=== PATIENT | male | born 1950 | race Caucasian/White ===

== ENCOUNTER 2016-12-27 16:25 | Emergency (ER) | payer BC, OTHER ==
[~2016-12-27] VITALS: Wt 81.0 kg
[2016-12-27] MEDS ORDERED: ONDANSETRON (ODT) 4 MG TAB ODT STA (18:25)
[2016-12-27] MEDS ORDERED: HYDROCODONE/APAP (5/325) TAB PO ONE (18:30)
--- NOTE | 2016-12-27 19:38 | RADRPT ---
PROCEDURE: CT Brain without contrast. CLINICAL INDICATION: Falls; Neurologic deficit TECHNIQUE: A CT of the brain was performed on multidetector high-resolution CT scanner utilizing a xial sections from the skull base through the vertex without contrast. One or more of the following dose reduction techniques were used: Automated exposure control, Adjustment of the mA and/or kV acc ording to patient size, and/or use of iterative reconstruction technique. DOSE: CTDI = 44 mGy and the DLP = 630 mGy-cm. COMPARISON: None available FINDINGS: No acute intracranial hemorrhage, significant mass effect or midline shift. Mild hypoattenuation of the cerebral white matter is compatible with chronic microvascular ischemic changes. Vascular calcif ications. Prominence of the cortical sulci and ventricles are related to mild cerebral volume loss. No significant opacification of the visualized paranasal sinuses or mastoids. IMPRESSION: No acute intracranial hemorrhage or mass effect. Mild chronic microvascular disease and intracranial atherosclerosis. RPTAT: AA .Bruno Jacobson MD, MD Date Time Electronically viewed and signed by .Bruno Jacobson MD, on 12/27/2016 19:38 .T/
--- NOTE | 2016-12-27 19:40 | RADRPT ---
PROCEDURE: CT Cervical Spine without contrast. CLINICAL INDICATION: Trauma, neck pain. TECHNIQUE: A CT of the cervical spine was performed on a multidetector CT scanner utilizing high-r esolution axial imaging from the skull base through the cervical thoracic junction. Sagittal and co ruma reconstructions were performed. CTDI: 22 mGy. DLP: 500 mGycm. One or more of the following dose reduction techniques were used: Automated exposure control, Adjustment of the mA and/or kV acc ording to patient size, and/or use of iterative reconstruction technique. COMPARISON: None available. FINDINGS: There is straightening of the normal lordosis of the cervical spine. No significant bony spinal can al or bony foraminal narrowing. No acute cervical vertebral fracture or subluxation. The prevertebra l soft tissues are unremarkable. The partially visualized lung apices are unremarkable. IMPRESSION: Straightening of the cervical lordosis. No acute cervical vertebral fracture or subluxation. RPTAT: AA .Bruno Jacobson MD, MD Date Time Electronically viewed and signed by .Bruno Jacobson MD, on 12/27/2016 19:39 .T/
[2016-12-27] MEDS ORDERED: ACET325T33 PO (19:43)
--- NOTE | 2016-12-27 19:43 | RADRPT ---
PROCEDURE: CT thoracic spine without contrast CLINICAL INDICATION: Back pain. TECHNIQUE: CT scan of the thoracic spine was performed [facility] No IV contrast was administered. One or more of the following dose reduction techniques were us ed: Automated exposure control, Adjustment of the mA and/or kV according to patient size, and/or use of iterative reconstruction technique. DOSE: CTDI = 28mGy and the DLP = 1079mGy-cm. COMPARISON: None available FINDINGS: Minimal chronic-appearing superior endplate T4 compression deformity. No definite acute thoracic vertebral fracture or subluxation is identified. Mild scattered degenerative changes at the bilateral mid-thoracic costovertebral junctions. No bony spinal canal or bony foraminal narrowing. Paraspinous soft tissues are grossly unremarkable. IMPRESSION: Minimal chronic-appearing superior endplate T4 compression deformity. No definite acute thoracic vertebral fracture or subluxation is identified. RPTAT: AA .Bruno Jacobson MD, MD Date Time Electronically viewed and signed by .Bruno Jacobson MD, on 12/27/2016 19:42 .T/
--- NOTE | 2016-12-27 19:45 | RADRPT ---
PROCEDURE: CT L-Spine. CLINICAL INDICATION: Back pain TECHNIQUE: A CT of the lumbar spine was performed on a multidetector CT scanner utilizing axial im ages from the thoracic lumbar junction through the lumbar sacral junction. Sagittal and coronal ref ormatted images were made. The CTDIvol is 35mGy and the DLP is 996mGycm. One or more of the followin g dose reduction techniques were used: Automated exposure control, Adjustment of the mA and/or kV ac cording to patient size, and/or use of iterative reconstruction technique. COMPARISON: None available. FINDINGS: No evidence of an acute lumbar vertebral compression fracture. L1-2: The disk space height is maintained. No bony spinal canal or bony foraminal narrowing. L2-3: The disk space height is maintained. No bony spinal canal or bony foraminal narrowing. L3-4: The disk space height is maintained.No bony spinal canal or bony foraminal narrowing. L4-5: The disk space height is maintained.No bony spinal canal or bony foraminal narrowing. L5-1: Grade 1 retrolisthesis with mild disc height loss and vacuum disc phenomenon. Foraminal disc o steophytes with mild to moderate left and mild right foraminal narrowing. Facet arthropathy. Sacroiliac joint degenerative changes. Aortoiliac atherosclerosis. IMPRESSION: No acute compression fracture. Grade 1 retrolisthesis in mild to moderate discogenic disease L5-S1. RPTAT: AA .Bruno Jacobson MD, MD Date Time Electronically viewed and signed by .Bruno Jacobson MD, MD on 12/27/2016 19:45 .T/
--- NOTE | 2016-12-27 19:52 | RADRPT ---
PROCEDURE: CT Abdomen and Pelvis without contrast. CLINICAL INDICATION: Abdominal pain TECHNIQUE: CT scan of the abdomen and pelvis was performed on a multidetector high-resolution CT s canner without intravenous contrast. Coronal and sagittal reformatted images were obtained from the axial source images. Images were reviewed on a high-resolution PACS workstation. The total exam CTD I equals 12mGy and the total exam DLP equals 736mGy-cm. One or more of the following dose reduction techniques were used: Automated exposure control, Adjustment of the mA and/or kV according to patien t size, and/or use of iterative reconstruction technique. COMPARISON: None. FINDINGS: Evaluation of the solid organs is limited given the lack of intravenous contrast administration. Coronary arterial and aortic atherosclerosis. Nodular surface contour to the liver. Prominent gastroesophageal varices. Spleen is enlarged. Trace perihepatic ascites. No pancreatic ductal dilatation. Adrenals are grossly unremarkable. Cholelithiasis without focal pericholecystic inflammatory changes. No hydronephrosis. No renal or ureteral stone. No bowel obstruction. Normal-caliber appendix. No significant retroperitoneal lymphadenopathy, ascites or evidence of pneumoperitoneum. Aortoiliac atherosclerosis. No retroperitoneal hemorrhage identified. Nondisplaced posterior left tenth rib fracture. IMPRESSION: Nondisplaced posterior left tenth rib fracture. No definite acute intra-abdominal process on this noncontrast exam. Cirrhosis with stigmata of portal hypertension including large gastroesophageal varices, trace perih epatic ascites and splenomegaly. Cholelithiasis. RPTAT: AA .Bruno Jacobson MD, Date Time Electronically viewed and signed by .Bruno Jacobson MD, MD on 12/27/2016 19:52 .T/
[2016-12-27] MEDS ORDERED: HYDR-906 PO (19:58)
--- NOTE | 2016-12-27 20:57 | ERD ---
ER Documentation Chief Complaint Chief Complaint MECHANICAL FALL DURING WALK TODAY HPI Patient is a 66-year-old male brought in by his family with concerns for back pain after fall yesterday. The patient was walking when he accidentally tripped over something falling backwards onto the left side of his back. Pain is constant pain, and was sudden in onset. No other symptoms or injuries reported at this time. No loss of consciousness reported. Patient is not on blood thinners. ROS All systems reviewed and are negative except as per history of present illness. Medications Home Meds Active Scripts Hydrocodone/Acetaminophen ([place] 5-325 Tablet) 1 Each Tablet, 1 TAB PO Q6H Y for PAIN, #12 TAB Prov:ISSA CM PA-C 12/27/16 Acetaminophen* (Tylenol*) 325 Mg Tablet, 2 TAB PO Q6 Y for PAIN AND OR ELEVATED TEMP, #20 TAB Prov:ISSA CM PA-C 12/27/16 Allergies Allergies: Coded Allergies: No Known Drug Allergies (Verified Allergy, Unknown, 12/27/16) PMhx/Soc Medical and Surgical Hx: pt denies Medical Hx, pt denies Surgical Hx Physical Exam Vitals Vital Signs Date Time Temp Pulse Resp B/P Pulse Ox O2 Delivery O2 Flow Rate FiO2 12/27/16 16:29 98.9 83 18 150/74 99 Physical Exam Const: Nontoxic, well-appearing male in no acute distress. Head: Atraumatic Eyes: Normal Conjunctiva ENT: Normal External Ears, Nose and Mouth. Neck: Full range of motion..~ No meningismus. Resp: Clear to auscultation bilaterally Cardio: Regular rate and rhythm, no murmurs Abd: Soft, non tender, non distended. Normal bowel sounds Back: Significant ecchymosis with associated tenderness palpation noted to the left mid back. Ext: No cyanosis, or edema Neur: Awake and alert Psych: Normal Mood and Affect Results 24 hrs Current Medications Medications (Trade) Dose Ordered Sig/Jesus Route PRN Reason Start Time Stop Time Status Last Admin Dose Admin Acetaminophen/ Hydrocodone Bitart ([place] (5/325)) 1 tab ONCE ONCE PO 12/27/16 18:30 12/27/16 18:31 DC 12/27/16 18:37 Ondansetron HCl (Zofran Odt) 4 mg ONCE STAT ODT 12/27/16 18:25 12/27/16 18:29 DC 12/27/16 18:37 Procedures/MDM 58-year-old male presents for fall today. There is no loss of consciousness. The only significant finding was a left rib fracture on imaging studies. No evidence of intracranial hemorrhage, spinal fracture, or other emergencies. Patient was treated in the department with pain medication and he was feeling improved prior to discharge. The patient was stable for discharge with prescription for [place] and Tylenol. He agreed with the discharge plan and diagnosis. No evidence of life-threatening pathology at time of discharge. Pt/family in agreement with discharge plan/diagnosis. Pt/family advised to return immediately with any new or worsening symptoms. Follow-up with primary care physician within the next 1-2 days. Disclaimer: Inadvertent spelling and grammatical errors are likely due to EHR/ dictation software use and do not reflect on the overall quality of patient care. Also, please note that the electronic time recorded on this note does not necessarily reflect the actual time of the patient encounter. PROCEDURE: CT Abdomen and Pelvis without contrast. CLINICAL INDICATION: Abdominal pain TECHNIQUE: CT scan of the abdomen and pelvis was performed on a multidetector high-resolution CT scanner without intravenous contrast. Coronal and sagittal reformatted images were obtained from the axial source images. Images were reviewed on a high-resolution PACS workstation. The total exam CTDI equals 12mGy and the total exam DLP equals 736mGy-cm. One or more of the following dose reduction techniques were used: Automated exposure control, Adjustment of the mA and/or kV according to patient size, and/or use of iterative reconstruction technique. COMPARISON: None. FINDINGS: Evaluation of the solid organs is limited given the lack of intravenous contrast administration. Coronary arterial and aortic atherosclerosis. Nodular surface contour to the liver. Prominent gastroesophageal varices. Spleen is enlarged. Trace perihepatic ascites. No pancreatic ductal dilatation. Adrenals are grossly unremarkable. Cholelithiasis without focal pericholecystic inflammatory changes. No hydronephrosis. No renal or ureteral stone. No bowel obstruction. Normal-caliber appendix. No significant retroperitoneal lymphadenopathy, ascites or evidence of pneumoperitoneum. Aortoiliac atherosclerosis. No retroperitoneal hemorrhage identified. Nondisplaced posterior left tenth rib fracture. IMPRESSION: Nondisplaced posterior left tenth rib fracture. No definite acute intra-abdominal process on this noncontrast exam. Cirrhosis with stigmata of portal hypertension including large gastroesophageal varices, trace perihepatic ascites and splenomegaly. Cholelithiasis. RPTAT: AA .Bruno Jacobson MD, MD Date Time Electronically viewed and signed by .Bruno Jacobson MD, MD on 12/27/2016 19:52 PROCEDURE: CT Brain without contrast. CLINICAL INDICATION: Falls; Neurologic deficit TECHNIQUE: A CT of the brain was performed on multidetector high-resolution CT scanner utilizing axial sections from the skull base through the vertex without contrast. One or more of the following dose reduction techniques were used: Automated exposure control, Adjustment of the mA and/or kV according to patient size, and/or use of iterative reconstruction technique. DOSE: CTDI = 44 mGy and the DLP = 630 mGy-cm. COMPARISON: None available FINDINGS: No acute intracranial hemorrhage, significant mass effect or midline shift. Mild hypoattenuation of the cerebral white matter is compatible with chronic microvascular ischemic changes. Vascular calcifications. Prominence of the cortical sulci and ventricles are related to mild cerebral volume loss. No significant opacification of the visualized paranasal sinuses or mastoids. IMPRESSION: No acute intracranial hemorrhage or mass effect. Mild chronic microvascular disease and intracranial atherosclerosis. RPTAT: AA .Bruno Jacobson MD, MD Date Time Electronically viewed and signed by .Bruno Jacobson MD, MD on 12/27/2016 19:38 PROCEDURE: CT Cervical Spine without contrast. CLINICAL INDICATION: Trauma, neck pain. TECHNIQUE: A CT of the cervical spine was performed on a multidetector CT scanner utilizing high-resolution axial imaging from the skull base through the cervical thoracic junction. Sagittal and coronal reconstructions were performed. CTDI: 22 mGy. DLP: 500 mGycm. One or more of the following dose reduction techniques were used: Automated exposure control, Adjustment of the mA and/or kV according to patient size, and/or use of iterative reconstruction technique. COMPARISON: None available. FINDINGS: There is straightening of the normal lordosis of the cervical spine. No significant bony spinal canal or bony foraminal narrowing. No acute cervical vertebral fracture or subluxation. The prevertebral soft tissues are unremarkable. The partially visualized lung apices are unremarkable. IMPRESSION: Straightening of the cervical lordosis. No acute cervical vertebral fracture or subluxation. RPTAT: AA .Bruno Jacobson MD, Date Time Electronically viewed and signed by .Bruno Jacobson MD, MD on 12/27/2016 19:39 PROCEDURE: CT L-Spine. CLINICAL INDICATION: Back pain TECHNIQUE: A CT of the lumbar spine was performed on a multidetector CT scanner utilizing axial images from the thoracic lumbar junction through the lumbar sacral junction. Sagittal and coronal reformatted images were made. The CTDIvol is 35mGy and the DLP is 996mGycm. One or more of the following dose reduction techniques were used: Automated exposure control, Adjustment of the mA and/or kV according to patient size, and/or use of iterative reconstruction technique. COMPARISON: None available. FINDINGS: No evidence of an acute lumbar vertebral compression fracture. L1-2: The disk space height is maintained. No bony spinal canal or bony foraminal narrowing. L2-3: The disk space height is maintained. No bony spinal canal or bony foraminal narrowing. L3-4: The disk space height is maintained.No bony spinal canal or bony foraminal narrowing. L4-5: The disk space height is maintained.No bony spinal canal or bony foraminal narrowing. L5-1: Grade 1 retrolisthesis with mild disc height loss and vacuum disc phenomenon. Foraminal disc osteophytes with mild to moderate left and mild right foraminal narrowing. Facet arthropathy. Sacroiliac joint degenerative changes. Aortoiliac atherosclerosis. IMPRESSION: No acute compression fracture. Grade 1 retrolisthesis in mild to moderate discogenic disease L5-S1. RPTAT: AA .Bruno Jacobson MD, Date Time Electronically viewed and signed by .Bruno Jacobson MD, MD on 12/27/2016 19:45 PROCEDURE: CT thoracic spine without contrast CLINICAL INDICATION: Back pain. TECHNIQUE: CT scan of the thoracic spine was performed on a multidetector high -resolution CT scanner. No IV contrast was administered. One or more of the following dose reduction techniques were used: Automated exposure control, Adjustment of the mA and/or kV according to patient size, and/or use of iterative reconstruction technique. DOSE: CTDI = 28mGy and the DLP = 1079mGy-cm. COMPARISON: None available FINDINGS: Minimal chronic-appearing superior endplate T4 compression deformity. No definite acute thoracic vertebral fracture or subluxation is identified. Mild scattered degenerative changes at the bilateral mid-thoracic costovertebral junctions. No bony spinal canal or bony foraminal narrowing. Paraspinous soft tissues are grossly unremarkable. IMPRESSION: Minimal chronic-appearing superior endplate T4 compression deformity. No definite acute thoracic vertebral fracture or subluxation is identified. RPTAT: AA .Bruno Jacobson MD, MD Date Time Electronically viewed and signed by .Bruno Jacobson MD, on 12/27/2016 19:42 Departure Diagnosis: Primary Impression: Left rib fracture Encounter type: initial encounter Rib fracture type: single rib Fracture type: closed Qualified Code: S22.32XA - Closed fracture of one rib of left side, initial encounter Condition: Fair Patient Instructions: Rib Fracture (Broken Rib) [facility] Usted se [place] hecho un examen mdico de control que le indica que no est en yoan condicin que requiera tratamiento urgente en el Departamento de Emergencia. Un estudio ms profundo y el tratamiento de jarrell condicin pueden esperar sin ningn riesgo hasta que usted sea atendida/o en el consultorio de jarrell mdico o yoan cl seth. Es responsabilidad suya arreglar yoan dirk para el seguimiento del ciaran. MANEJO DE CONDICIONES NO URGENTES EN EL FUTURO 1) Si usted tiene un mdico de atencin primaria: Usted debera llamar a jarrell mdico de atencin primaria antes de venir al departamento de emergencia. Despus de las horas de consultorio, jarrell doctor o jarrell asociado/a est disponible por telfono. El mdico o enfermero de paola en el servicio telefnico puede asesorarle por lucho medio para atender el problema, o ciaran contrario se puede programar yoan dirk. 2) Si usted no tiene un mdico de atencin primaria: Llame al mdico o clnica de referencia que aparece abajo amina las horas de consultorio para hacer yoan dirk para que le vean. CLINICAS: [facility] [phone] [facility] [facility] [phone] [facility] [facility] [phone] [facility]. [facility] [phone] [facility]. [facility] [phone] [id number] [facility] [phone] [address] Additional Instructions: Follow up with your PCP within the next 1-3 days for a repeat evaluation. If you require a referral to a specialist, your Primary Care Provider may be able to provide this for you. In most patient cases, a referral is not required. If you have further questions regarding this matter, please ask your Primary Care Provider. Return the the emergency department immediately if symptoms worsen or change. If you have any questions regarding medications, ask your pharmacist or us before you leave. If any adverse reactions, occur while taking your medications, discontinue the treatment and return to the emergency department immediately. If any new or worsening symptoms, uncontrolled fevers, or other unexplained symptoms occur, return to the emergency department immediately. Take your medications as directed, and complete the entire course of treatment. ISSA CM PA-C Dec 27, 2016 20:57
== END 2016-12-27 20:10 | disposition home or self-care (01) ==
LOC: FTE 16:25
DX: S22.32XA Fracture of one rib, left side, initial encounter for closed fracture (principal); R51 Headache; W01.0XXA Fall on same level from slipping, tripping and stumbling without subsequent striking against object, initial encounter; Y92.9 Unspecified place or not applicable
CPT/HCPCS: 70450; 72125; 72128; 72131; 74176